=== PATIENT | male | born 1990 | race Caucasian/White ===

== ENCOUNTER → 2016-07-01 | Outpatient (CLI) | payer BC ==
--- NOTE | 2016-07-02 02:13 | REP ---
Clinical: Pain . Technique: AP, lateral, bilateral oblique, and coned-down views. Findings: Alignment and lordosis is maintained. There is no evidence for acute fracture / compression injury or subluxation. Lateral view best demonstrates increased sclerosis and possible Schmorl's nodes involving the L4-5 and L5-S1 levels along with mild hypertrophic facet changes at L5. Underlying chronic spondylolysis cannot be excluded. No evidence for spondylolisthesis. Impression: Satisfactory alignment without acute fracture or subluxation. Degenerative changes at the L4-5 and L5-S1 levels including endplate sclerosis and possible Schmorl's nodes as well as possible chronic L5 spondylolysis. Signed by Scott Pena MD 07/02/2016 02:04 A
== END ==
LOC: M WUC 13:19
PROVIDERS: ATTEND Physician Assistant
DX: M51.36 Other intervertebral disc degeneration, lumbar region (principal); M51.37 Other intervertebral disc degeneration, lumbosacral region; M47.816 Spondylosis without myelopathy or radiculopathy, lumbar region

== ENCOUNTER 2018-05-03 12:41 | Emergency (ER) | payer BC ==
[~2018-05-03] VITALS: Ht 182.9 cm; Wt 81.8 kg
[2018-05-03] MEDS ORDERED: ONDANSETRON 4MG/2ML VIAL (J2405) IV ONE (13:30)
[2018-05-03] MEDS ORDERED: NS 1,000 ML IV ONE (13:30)
[2018-05-03] MEDS ORDERED: KETOROLAC 30 MG/ML VIAL (J1885) IV ONE (13:30)
[2018-05-03 14:07] LABS: BASO # 0.1 10^3/uL (0.0-0.2); BASO % 0.4 % (0.0-1.0); EOS # 0.1 10^3/uL (0.0-0.50); EOS % 0.6 % (0.0-3.0); HEMATOCRIT 44.9 % (42.0-52.0); HEMOGLOBIN 15.5 g/dl (13.5-17.5); LYMPH % 7.5 % (24.0-44.0); MEAN CORPUSCULAR HEMOGLOBIN 32.2 pg (27.0-33.0); MEAN CORPUSCULAR HGB CONC 34.5 g/dl (32.0-36.5); MEAN CORPUSCULAR VOLUME 93.2 fl (80.0-96.0); MONO # 1.1 10^3/uL (0.0-0.8); MONO % 7.9 % (0.0-5.0); NEUTROPHILS # 11.1 10^3/uL (1.8-7.7); NEUTROPHILS % 83.2 % (36.0-66.0); PLATELET COUNT, AUTOMATED 324 10^3/uL (150-450); RED BLOOD COUNT 4.82 10^6/uL (4.30-6.10); WHITE BLOOD COUNT 13.3 10^3/uL (4.0-10.0)
--- NOTE | 2018-05-03 14:16 | REP ---
CT ABDOMEN AND PELVIS WITHOUT IV OR ORAL CONTRAST: Renal stone protocol. HISTORY: Right renal colic. No comparison study. Comparison radiographs of the lumbar spine July 01, 2016. CT FINDINGS: Digital preliminary insolvency consultant radiograph shows an unremarkable bowel gas pattern. The lung bases are clear. The liver and the spleen are normal in size homogeneous in texture. No adrenal lesion is seen. No pancreatic or gallbladder abnormality is seen. There is moderate right-sided hydronephrosis due to the presence of a obstructive right mid ureteral calculus measuring 6 mm in diameter at the level of the L3-4 intervertebral disc. This calculus appears to have been in the upper pole of the right kidney at the time of the July 01, 2016 lumbar spine radiographs. There is a 4 mm calculus in the lower pole right kidney on today's CT study. No other intrarenal calculus is seen on the right. On the left, there is no definite intrarenal calculus. No hydronephrosis seen. No bladder calculus is observed. Prostate and seminal vesicles are unremarkable. Normal appendix is seen in the right pelvis. Small and large intestinal bowel loops are unremarkable. IMPRESSION: 6 mm obstructive right mid ureteral calculus with periureteral edema and ureteral mural thickening. Moderate right-sided hydronephrosis. There is a 4 mm intrarenal calculus in the lower pole of the right kidney as well. Electronically Signed by Nicolas Santa MD 05/03/2018 07:40 P
[2018-05-03 14:38] LABS: ALBUMIN 4.3 GM/DL (3.2-5.2); ALT/SGPT 64 U/L (12-78); BILIRUBIN,DIRECT 0.1 MG/DL (0.0-0.2); BILIRUBIN,TOTAL 0.4 MG/DL (0.2-1.0); BLOOD UREA NITROGEN 15 MG/DL (7-18); CALCIUM LEVEL 9.3 MG/DL (8.5-10.1); CARBON DIOXIDE LEVEL 27 MEQ/L (21-32); CHLORIDE LEVEL 104 MEQ/L (98-107); CREATININE FOR GFR 1.17 MG/DL (0.70-1.30); GLOMERULAR FILTRATION RATE > 60.0 (>60); GLUCOSE, FASTING 104 MG/DL (70-100); POTASSIUM SERUM 4.2 MEQ/L (3.5-5.1); SODIUM LEVEL 139 MEQ/L (136-145); TOTAL PROTEIN 7.7 GM/DL (6.4-8.2)
[2018-05-03] MEDS ORDERED: ONDA4TAB6 PO (15:16)
[2018-05-03] MEDS ORDERED: NORCOTAB PO (15:16)
[2018-05-03] MEDS ORDERED: IBUP80TA PO (15:16)
[2018-05-03] MEDS ORDERED: FLOM0.4C39 PO (15:16)
[2018-05-03 15:23] VITALS: BP 122/76
== END 2018-05-03 15:26 | disposition home or self-care (01) ==
LOC: M ED 12:41
DX: N20.1 Calculus of ureter (principal); N13.30 Unspecified hydronephrosis
CPT/HCPCS: 74176; 80048; 80076; 81001; 85025; 87086; 96374; 96375; 99284; J1885; J2405

== ENCOUNTER → 2020-11-28 | Outpatient (CLI) | payer BC ==
[~2020-11-28] MED LIST: FLOM0.4C39 PO; HYDR-3715 PO; IBUP80TA PO; ONDA4TAB6 PO
--- NOTE | 2020-11-30 13:24 | REPVR ---
PROCEDURE INFORMATION: Exam: MR Cervical Spine Without Contrast Exam date and time: 11/28/2020 4:01 PM Age: 30 years old Clinical indication: Neck pain. TECHNIQUE: Imaging protocol: Multiplanar magnetic resonance images of the cervical spine without contrast. COMPARISON: CR SPINE LS COMPLETE 07/01/2016 1:26 PM FINDINGS: Vertebrae: There is loss of height of the C6 vertebra, either congenital or an acquired compression fracture. Spinal cord: Normal signal. No cord compression. C2-C3: No significant disc disease. No significant spinal stenosis. C3-C4: There is disc desiccation. C4-C5: There is disc desiccation. C5-C6: There is disc desiccation. C6-C7: No significant disc disease. No significant spinal stenosis. C7-T1: No significant disc disease. No significant spinal stenosis. Soft tissues: Unremarkable. IMPRESSION: 1. Multilevel disc desiccation. There is no significant spinal canal stenosis or cord compression. 2. There is loss of height of the C6 vertebra, either congenital or an old acquired compression fracture. Electronically signed by: Medhat Richards On 11/30/2020 13:23:58 PM
== END ==
LOC: M PLARAD 13:58
DX: M50.321 Other cervical disc degeneration at C4-C5 level (principal); M50.322 Other cervical disc degeneration at C5-C6 level

== ENCOUNTER 2022-05-28 16:41 | Emergency (ER) | payer BC ==
[~2022-05-28] VITALS: Ht 180.3 cm; Wt 82.3 kg
[2022-05-28 18:45] LABS: BASO # 0.1 10^3/uL (0.0-0.2); BASO % 0.6 % (0.0-1.0); EOS # 0.5 10^3/uL (0.0-0.5); EOS % 6.4 % (0.0-3.0); HEMATOCRIT 46.5 % (42.0-52.0); HEMOGLOBIN 15.7 g/dl (13.5-17.5); LYMPH # 1.6 10^3/uL (1.5-5.0); LYMPH % 18.6 % (24.0-44.0); MEAN CORPUSCULAR HEMOGLOBIN 30.8 pg (27.0-33.0); MEAN CORPUSCULAR HGB CONC 33.8 g/dl (32.0-36.5); MEAN CORPUSCULAR VOLUME 91.2 fl (80.0-96.0); MONO # 0.9 10^3/uL (0.0-0.8); MONO % 10.8 % (2.0-8.0); NEUTROPHILS # 5.4 10^3/uL (1.5-8.5); NEUTROPHILS % 63.5 % (36.0-66.0); PLATELET COUNT, AUTOMATED 319 10^3/uL (150-450); WHITE BLOOD COUNT 8.5 10^3/uL (4.0-10.0)
[2022-05-28 18:58] LABS: ERYTHROCYTE SEDIMENTATION RATE 8 mm/hr (0-15)
[2022-05-28 19:11] LABS: BLOOD UREA NITROGEN 15 MG/DL (9-23); CALCIUM LEVEL 9.8 MG/DL (8.5-10.1); CARBON DIOXIDE LEVEL 30 MMOL/L (20-31); CHLORIDE LEVEL 106 MMOL/L (98-107); CREATININE FOR GFR 0.78 MG/DL (0.70-1.30); GLOMERULAR FILTRATION RATE > 60.0 (>60); GLUCOSE, FASTING 82 MG/DL (60-100); POTASSIUM SERUM 4.8 MMOL/L (3.5-5.1); SODIUM LEVEL 141 MMOL/L (136-145)
[2022-05-28] MEDS ORDERED: IBUP200T46 PO (19:40)
[2022-05-28] MEDS ORDERED: ACET-683 PO (19:40)
[2022-05-28] MEDS ORDERED: OXYC10TA3 PO (19:40)
[2022-05-28] MEDS ORDERED: TRAM50TA2 PO (19:53)
[2022-05-28] MEDS ORDERED: IBUP80TA PO (20:04)
[2022-05-28] MEDS ORDERED: traMADol 50 MG TAB (HOME DOSE PACK) PO ONE (20:05)
[2022-05-28 20:20] VITALS: BP 139/98
== END 2022-05-28 20:22 | disposition home or self-care (01) ==
LOC: M ED 16:41
DX: K04.7 Periapical abscess without sinus (principal); Z88.0 Allergy status to penicillin

== ENCOUNTER → 2023-08-08 | Outpatient (CLI) | payer BC ==
[~2023-08-08] MED LIST changes: +ACET-683 PO; +IBUP200T46 PO; +OXYC10TA3 PO; +TRAM50TA2 PO
[2023-08-08 17:01] LABS: SEMEN APPEARANCE OPAQUE (OPAQUE); SEMEN VISCOSITY LIQUID (LIQUID)
[2023-08-08 17:02] LABS: SEMEN pH 8.5 (7.0-8.0); SPERM CONCENTRATION 42.6 M/ml (>=15.0); WBC CONCENTRATION >1 M/ml (<=1 M/ml)
== END ==
LOC: M LAB 12:12
PROVIDERS: ATTEND Obstetrics & Gynecology Obstetrics
DX: Z30.8 Encounter for other contraceptive management (principal)

== ENCOUNTER 2024-06-29 08:38 | Day surgery (SDC) | payer OTHER ==
[~2024-06-29] VITALS: Ht 180.3 cm; Wt 84.8 kg
[~2024-06-29 08:38] MED LIST changes: +FAMO40TA3 PO; +ONDA-282 PO; -ONDA4TAB6 PO
[2024-06-29] MEDS ORDERED: propofoL 200 MG/20 ML VIAL As Ordered ONE (10:10)
[2024-06-29] MEDS ORDERED: LIDOCAINE 2% 100MG/5ML SDV (FOR ANES.) As Ordered ONE (10:10)
[2024-06-29 10:24] VITALS: TEMP 97.6
[2024-06-29 10:40] VITALS: BP 112/56; O2SAT 98
== END 2024-06-29 10:49 | disposition home or self-care (01) ==
LOC: M OPP 08:38
PROVIDERS: ATTEND Surgery
DX: K21.00 Gastro-esophageal reflux disease with esophagitis, without bleeding (principal); Z88.1 Allergy status to other antibiotic agents; Z79.899 Other long term (current) drug therapy; J45.909 Unspecified asthma, uncomplicated